=== PATIENT | male | born 1960 | race Caucasian/White ===

== ENCOUNTER 2022-02-10 09:15 | Outpatient (CLI) | payer OTHER, SELFPAY ==
[2022-02-10 19:25] LABS: Alanine Aminotransferase 23 U/L (6-50); Albumin Level 4.4 g/dL (3.5-5.1); Alkaline Phosphatase 76 U/L (38-126); Anion Gap 8 mmol/L (8-16); Aspartate Amino Transferase 63 U/L (17-59); Bilirubin,Total 0.5 mg/dL (0.2-1.3); Blood Urea Nitrogen 24 mg/dL (9-20); Calcium 8.8 mg/dL (8.4-10.2); Carbon Dioxide 26 mmol/L (22-30); Chloride 107 mmol/L (98-107); Cholesterol 174 mg/dL (0-200); Estimated Glomerular Filt Rate > 60; Glucose 85 mg/dL (65-110); HDL Direct 56 mg/dL; Potassium 4.3 mmol/L (3.4-5.0); Sodium 141 mmol/L (137-145); Triglycerides 119 mg/dL (<150)
[2022-02-10 19:37] LABS: LDL Cholesterol Direct 87 mg/dL
[2022-02-10 19:40] LABS: Eosinophils Absolute Auto 0.2 K/mm3 (0-0.3); Eosinophils Percent Auto 5.1 % (0-4.4); Hematocrit 43.6 % (42.0-52.0); Hemoglobin 14.2 g/dL (14.0-18.0); Immature Granulocyte Absolute 0.01 K/mm3 (0.00-0.031); Immature Granulocyte Percent A 0.3 % (0-0.5); Lymphocytes Absolute Auto 1.65 K/mm3 (0.9-3.2); Lymphocytes Percent Auto 41.9 % (18.3-44.2); Mean Corpuscular HGB Conc 32.6 g/dl (32-36); Mean Corpuscular Hemoglobin 30.2 pg (26-34); Mean Corpuscular Volume 92.8 fl (80-100); Mean Platelet Volume 8.8 fl (7.4-10.4); Monocytes Absolute Auto 0.4 K/mm3 (0.1-0.6); Monocytes Percent Auto 8.9 % (2.6-8.5); Neutrophils Absolute Auto 1.7 K/mm3 (1.3-6.7); Neutrophils Percent Auto 42.8 % (45.5-73.1); Platelet Count Result 230 k/mm3 (150-375); Red Cell Distribution Width 13.3 % (11.5-14.5); White Blood Count 3.9 K/mm3 (4.5-10.0)
[2022-02-10 19:55] LABS: Prostate Specific Antigen 2.4 ng/mL (< OR = 4.0)
== END 2022-02-10 09:16 | disposition home or self-care (01) ==
PROVIDERS: PCP Family Medicine; Visit Provider Family Medicine
DX: Z00.00 Encounter for general adult medical examination without abnormal findings (principal); Z12.5 Encounter for screening for malignant neoplasm of prostate
CPT/HCPCS: 36415; 80053; 80061; 84153; 85025; G0103

== ENCOUNTER 2022-03-23 00:42 | Day surgery (SDC) | payer OTHER, SELFPAY ==
[2022-03-14 09:26] VITALS: BMI 26.1
[2022-03-23 07:08] VITALS: BP 134/82; PULSE 64; RESP 18; TEMP 36.1; O2SAT 100
[2022-03-23] MEDS: LACTATED RINGERS 1,000 ML 150 ML IV CONT (07:11)
--- NOTE | 2022-03-23 08:01 | P.PNAN_ITS ---
Anes - Initial Pre Proc Eval Procedure: Operation Date: 03/23/22 08:30 Proposed Procedures p Screening Colonoscopy - Serge Rodriguez MD Date/Time: 03/23/22 08:01 Surgeon: Serge Rodriguez MD Pre Op Diagnosis: fam hx of colon ca, pers hx of colon polyp Patient Data Age: 61 Gender: M Height: 1.8 m Weight: 86.9 kg Last Vital Signs Temp 36.1 C L 03/23/22 07:08 Pulse 64 03/23/22 07:08 Resp 18 03/23/22 07:08 BP 134/82 03/23/22 07:08 Pulse Ox 100 03/23/22 07:08 O2 Del Method Room Air 03/23/22 07:08 Allergies Allergy/AdvReac Type Severity Reaction Status Date / Time No Known Allergies Allergy Verified 03/23/22 07:07 Home Medications Medication Instructions Recorded Confirmed Type sildenafil 100 mg tablet 100 mg PO DAILY PRN sexual 02/08/22 03/23/22 Rx activity #30 tabs valacyclovir 500 mg tablet 500 mg PO Q12H PRN Herpes 03/14/22 03/23/22 History Patient hx anesthesia problems: none Family hx anesthesia problems: none Results Review: All pre-operative results and documents have been reviewed as part of the pre- operative evaluation. [facility] Family History Family History Father Carcinoma of colon Mother Carcinoma of colon Sibling Carcinoma of colon Social History Social History Years smoked: 40 Smoking status: Former smoker Alcohol intake: current Drinks per week: 4 Alcohol use details: Beer Social Substance use: never Substance use type: tranquilizers Living arrangements: with family Gender identity (if verbalized by the patient): Male Sexual Orientation (if Verbalized by the Patient): Straight or Heterosexual Spiritual care concerns: No Agree to blood products: Yes Anes - Eval Final PreProcedure Day of Procedure 03/23/22 08:01 Patient weight: overweight Heart: regular rate and rhythm Lungs: clear to auscultation Airway: Mallampati scale class 1 Neurological: alert and oriented Last oral intake: >/= 8 hours ASA classification: II Emergent: no Anesthetic plan: proceed Anesthesia type and monitoring: general GIVS and standard monitoring Results Review: All pre-operative results and documents have been reviewed as part of the pre- operative evaluation. Informed Consent: The patient's anesthetic plan and its attendant risks and benefits were discussed with the patient/family/POA. Questions were solicited and answers provided to the satisfaction of the patient/family/POA.
--- NOTE | 2022-03-23 08:16 | PM.HPGS ---
History of Present Illness History of Present Illness Consent: Risks, benefits, and alternatives have been discussed and questions answered. Patient agrees to proceed with procedure. Chief complaint: fam hx of colon ca, pers hx of colon polyp Narrative: Mahad Martinez is a 61 year old male with strong family history of colon cancer (both parents and one sibling at mid 30's), he has been getting his colonoscopies almost every year Review of Systems Constitutional: Constitutional: Denies headache(s) and Denies weakness Eyes: Eyes: Denies blurry vision ENT: Reports Normal hearing present, Denies headache(s) and Denies neck pain Cardiovascular: Cardiovascular: Denies chest pain and Denies dyspnea Respiratory: Respiratory: Denies dyspnea Gastrointestinal: Gastrointestinal: Reports no additional gastrointestinal complaints Genitourinary: Genitourinary: Denies dysuria Musculoskeletal: Musculoskeletal: Denies neck pain Integumentary/Breasts: Skin/Breast: Denies dry skin Neurologic: Reports Normal hearing present, Denies headache(s) and Denies weakness Psychiatric: Psychiatric: Denies anxiety Endocrine: Endocrine: Denies change in body appearance Hematologic/Lymphatic: Hematologic/Lymphatic: Denies easy bleeding Allergic/Immunologic: Allergic/Immunologic: Denies urticaria PMF Family History Family History Father Carcinoma of colon Mother Carcinoma of colon Sibling Carcinoma of colon Social History Social History Years smoked: 40 Smoking status: Former smoker Alcohol intake: current Drinks per week: 4 Alcohol use details: Beer Social Substance use: never Substance use type: tranquilizers Living arrangements: with family Gender identity (if verbalized by the patient): Male Sexual Orientation (if Verbalized by the Patient): Straight or Heterosexual Spiritual care concerns: No Agree to blood products: Yes Meds Home Medications and Allergies Home Medications Medication Instructions Recorded Confirmed Type sildenafil 100 mg tablet 100 mg PO DAILY PRN sexual 02/08/22 03/23/22 Rx activity #30 tabs valacyclovir 500 mg tablet 500 mg PO Q12H PRN Herpes 03/14/22 03/23/22 History Allergies Allergy/AdvReac Type Severity Reaction Status Date / Time No Known Allergies Allergy Verified 03/23/22 07:07 Vital Signs Vital Signs - 24 hr 03/23/22 07:08 Temperature 97 F L Pulse Rate 64 Respiratory Rate 18 Blood Pressure 134/82 Pulse Oximetry 100 Oxygen Delivery Room Air Exam Const: General: comfortable and no acute distress HENMT: Face/Nose/Sinus: Normal nares present Eyes: General: appearance normal, both eyes and all related structures Neck: Neck: no JVD Resp: Auscultation: clear to auscultation bilaterally Cardio: Rate: regular rate Rhythm: regular rhythm GI: Inspection: non-distended GI Palp: Yes Soft to palpation Skin: General skin exam: normal color Neuro: General: gait normal Speech: normal speech Extrem: General: normal to inspection Psych: Mental Status: mental status grossly normal Assessment and Plan Assessment and plan (1) Family hx of colon cancer: Code(s): Z80.0 - Family history of malignant neoplasm of digestive organs Status: Acute Assessment and Plan: colonoscopy
[2022-03-23 08:35] VITALS: BP 100/63; PULSE 76; RESP 20; O2SAT 99
[2022-03-23 08:45] VITALS: BP 128/86; PULSE 65; RESP 21; O2SAT 99
[2022-03-23 08:55] VITALS: BP 116/80; PULSE 56; RESP 15; O2SAT 99
== END 2022-03-23 09:03 | disposition home or self-care (01) ==
PROVIDERS: PCP Family Medicine; Visit Provider Internal Medicine Gastroenterology
PROC: 0DJD8ZZ Inspection of Lower Intestinal Tract, Via Natural or Artificial Opening Endoscopic (ICD-10-PCS; CPT 45378; principal; 2022-03-23 08:30)
DX: Z12.11 Encounter for screening for malignant neoplasm of colon (principal); K57.30 Diverticulosis of large intestine without perforation or abscess without bleeding; K64.8 Other hemorrhoids; Z80.0 Family history of malignant neoplasm of digestive organs; Z87.891 Personal history of nicotine dependence
CPT/HCPCS: 45378; J2704; J7120

== ENCOUNTER 2022-09-01 11:43 | Outpatient (CLI) | payer OTHER, SELFPAY ==
--- NOTE | ~2022-09-01 | XR_ITS ---
Clinical Indication: Cough PA and lateral views of the chest: Comparison: None Findings: There is extensive right middle lobe consolidation, compatible with pneumonia. There is pro bable additional focal involvement in the lingula or left lower lobe.. Cardiomediastinal silhouette is within normal limits. Bones and soft tissues are unremarkable. Impression: Extensive right middle lobe pneumonia. Probable additional focal pneumonia in the lingula, or possibly left lower lobe. Reviewed, dictated and finalized at location M. Impression: Extensive right middle lobe pneumonia. Probable additional focal pneumonia in the lingula, or possibly left lower lobe .
== END 2022-09-01 11:44 | disposition home or self-care (01) ==
LOC: ANHBWCIMG 11:45
PROVIDERS: PCP Family Medicine; Visit Provider Nurse Practitioner
DX: R05.9 Cough, unspecified (principal); R06.2 Wheezing; J18.9 Pneumonia, unspecified organism
CPT/HCPCS: 71046